=== PATIENT | male | born 1955 | race African-American/Black ===

== ENCOUNTER 2017-03-17 05:48 | Emergency (ER) | payer SELFPAY ==
[2017-03-17] MEDS ORDERED: Ondansetron ODT 8 MG TAB ONE (07:14)
[2017-03-17] MEDS ORDERED: Mag-Al 1200 mg/1200 mg/30 ML UDCUP ONE (07:15)
[2017-03-17] MEDS ORDERED: Lidocaine Viscous Sol 2% 15 ml UD Cup ONE (07:15)
[2017-03-17 07:39] LABS: #Lymphocytes 1.2 thou/uL (1.20-3.40); #Monocytes 0.9 thou/uL (0.11-0.59); #Neutrophils 11.5 thou/uL (1.40-6.50); %Basophils 0.2 % (0.0-1.0); %Eosinophils 0.2 % (0.0-10.0); %Monocytes 6.8 % (0.0-10.0); Hematocrit 49.2 % (42.0-52.0); Mean Platelet Volume 6.3 fL (7.4-10.4); White Blood Cell (WBC) Count 13.7 thou/uL (4.8-10.8)
[2017-03-17 08:03] LABS: ALT (SGPT) 21 U/L (8-55); AST (SGOT) 15 U/L (5-34); Alkaline Phosphatase 66 U/L (40-150); Anion Gap 10 mmol/L (10-20); BUN (Urea Nitrogen) 14 mg/dL (8.4-25.7); Bilirubin, Total 1.5 mg/dL (0.2-1.2); Calc. Creatinine Clearance 0 mL/min (70-130); Calcium 10.2 mg/dL (7.8-10.44); Carbon Dioxide 27 mmol/L (22-29); Chloride 103 mmol/L (98-107); Estimated GFR-MDRD Greater than 90; Globulin 3.4 g/dL (2.4-3.5); Lipase 14 U/L (8-78); Protein, Total 7.4 g/dL (6.0-8.3)
[2017-03-17] MEDS ORDERED: Ketorolac Tromethamine 30 MG/ML VIAL ONE (08:22)
== END 2017-03-17 09:19 | disposition home or self-care (01) ==
LOC: ERS 05:48
DX: K29.70 Gastritis, unspecified, without bleeding (principal)
CPT/HCPCS: 36415; 80053; 83690; 85025; 96372; J1885

== ENCOUNTER 2019-11-22 08:57 | Outpatient (CLI) | payer OTHER | END 2019-11-22 08:58 | disposition home or self-care (01) | LOC: TBSIIMAG 08:57 | PROVIDERS: ATTEND Internal Medicine | DX: R97.20 Elevated prostate specific antigen [PSA] (principal) | CPT/HCPCS: 82565 ==

== ENCOUNTER 2021-01-20 08:37 | Outpatient (CLI) | payer OTHER | END 2021-01-20 08:38 | disposition home or self-care (01) | LOC: TBSIIMAG 08:37 | PROVIDERS: ATTEND Internal Medicine | DX: R97.20 Elevated prostate specific antigen [PSA] (principal) | CPT/HCPCS: 72197 ==

== ENCOUNTER 2023-02-17 15:44 | Emergency (ER) | payer MEDICARE, OTHER ==
[2023-02-17 18:27] LABS: SARS-CoV-2 NAA Rapid Test Not Detected (NotDetected)
== END 2023-02-17 19:04 | disposition home or self-care (01) ==
LOC: ERS 15:44
DX: J30.9 Allergic rhinitis, unspecified (principal); J06.9 Acute upper respiratory infection, unspecified; Z20.822 Contact with and (suspected) exposure to COVID-19; I10 Essential (primary) hypertension
CPT/HCPCS: 71046; 99285